=== PATIENT | female | born 1985 | race Caucasian/White ===

== ENCOUNTER 2020-05-17 04:35 | Emergency (ER) | payer BC, OTHER, SELFPAY ==
[2020-05-17 04:40] VITALS: BP 113/86; PULSE 91; RESP 16; O2SAT 98
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
[2020-05-17] MEDS: ondansetron 2 mg/ML SDV 2 mL 4 MG IVP (04:53)
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
[2020-05-17 05:15] LABS: HCG, Serum Qual Negative (Negative)
[2020-05-17 05:16] LABS: Alanine Aminotransferase 14 U/L (0-33); Albumin Level 4.4 g/dL (3.5-5.2); Alkaline Phosphatase 52 IU/L (35-105); Anion Gap 14.7 (5-19); Aspartate Amino Transferase 11 U/L (0-32); Blood Urea Nitrogen 11 mg/dL (6-20); Calcium 8.6 mg/dL (8.5-10.5); Carbon Dioxide 27 mmol/L (22-29); Chloride 103 mmol/L (98-107); Globulin 2.1 g/dL (1.3-4.6); Glomerular Filtration Rate 112.5 mL/min (90-130); Glucose 102 mg/dL (65-115); Osmolality Calculated 288 mOsm/kg (285-295); Potassium 3.7 mmol/L (3.5-5.1); Sodium 141 mmol/L (136-145); Total Bilirubin 0.2 mg/dL (0.15-1.2); Total Protein 6.5 g/dL (6.6-8.7)
[2020-05-17] MEDS: iohexol 300 mg/mL 100 mL Btl IV (05:16)
[2020-05-17 06:00] VITALS: BP 115/83; PULSE 99; RESP 20; O2SAT 100
[2020-05-17 06:04] LABS: Basophils # 0.1 10^3/uL (0.0-0.1); Basophils % 1.3 %; Eosinophils # 0.1 10^3/uL (0.0-0.8); Eosinophils % 2.8 %; Hematocrit 37.4 % (37.0-47.0); Hemoglobin 12.3 g/dL (11.5-15.3); Lymphocytes # 1.4 10^3/uL (0.8-4.8); Lymphocytes % 30.6 %; Mean Corpuscular HGB Conc 32.9 g/dL (30.0-36.0); Mean Corpuscular Hemoglobin 33.3 pg (28.0-34.0); Mean Corpuscular Volume 101.4 fL (81-99); Mean Platelet Volume 9.9 fL (7.4-10.4); Monocytes # 0.3 10^3/uL (0.2-0.9); Monocytes % 5.3 %; Neutrophils # 2.8 10^3/uL (1.8-7.7); Nucleated Red Blood Cells % 0 %; Platelet Count 246 10^3/cmm (130-400); Red Blood Count 3.69 10^6/uL (4.1-5.3); Red Cell Distribution Width 11.8 % (12.1-15.1); White Blood Count 4.7 10^3/uL (4.0-10.0)
[2020-05-17 06:08] LABS: Bacteria Urine TRACE; Bilirubin Urine Neg (NEGATIVE); Blood Urine Neg (Negative); Glucose Urine UA 4+ (Normal); Ketones Urine Negative (Negative); Leukocyte Esterase Urine Negative (Negative); Nitrate Urine Negative (Negative); Protein Urine Neg (Negative); Urine Appearance Clear (CLEAR); Urine Color Yellow (Yellow); Urobilinogen Urine Norm (Negative); WBC Urine RARE /hpf (0-5); pH Urine 5 (5-7)
[2020-05-17 07:40] LABS: Alcohol Level 313 mg/dL (0-10)
[2020-05-17 08:08] LABS: Amphetamines Screen Urine Negative (Negative); Barbiturates Screen Urine Negative (Negative); Benzodiazepines Screen Urine Negative (Negative); Cocaine Screen Urine Negative (Negative); Opiate Screen Urine Positive (Negative); PCP Screen Urine Negative (Negative); THC Screen Urine Negative (Negative)
[2020-05-17 10:44] VITALS: BP 99/66; PULSE 96; RESP 16; TEMP 36.9; O2SAT 100
== END 2020-05-17 10:25 | disposition home or self-care (01) ==
PROVIDERS: Emergency Medicine; Emergency Provider Family Medicine
DX: F10.129 Alcohol abuse with intoxication, unspecified (principal); Z87.891 Personal history of nicotine dependence
CPT/HCPCS: 12345; 70450; 71260; 72125; 74177; 80053; 80306; 80307; 81001; 84703; 85025; 96374; 96375; 99283; J2405; Q9967

== ENCOUNTER 2021-11-28 03:47 | Emergency (ER) | payer BC, OTHER, SELFPAY ==
[2021-11-28 03:48] VITALS: BP 128/84; PULSE 83; RESP 18; O2SAT 95; BMI 21.6
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
--- NOTE | 2021-11-28 04:00 | PC.NURSE ---
pt ambulatory, sts she does not want any x-rays. pt able to ambulate with only a slight limp.
== END 2021-11-28 04:07 | disposition home or self-care (01) ==
PROVIDERS: Emergency Provider Emergency Medicine
DX: S20.211A Contusion of right front wall of thorax, initial encounter (principal); S93.402A Sprain of unspecified ligament of left ankle, initial encounter; V47.6XXA Car passenger injured in collision with fixed or stationary object in traffic accident, initial encounter
CPT/HCPCS: 99282

== ENCOUNTER → 2023-01-15 13:57 | Outpatient (BNVA) | payer BC, OTHER, SELFPAY | PROVIDERS: Visit Provider Registered Nurse Neonatal Intensive Care | DX: N39.0 Urinary tract infection, site not specified (principal) | CPT/HCPCS: 81000 ==